=== PATIENT | male | born 1975 | race African-American/Black ===

== ENCOUNTER → 2017-12-20 | Outpatient (CLI) | payer OTHER ==
--- NOTE | 2017-12-20 15:06 | RADIOLOGY REPORT (SQ) ---
EXAM DESCRIPTION: FOOT LEFT 2 VIEWS COMPLETED DATE/TIME: 12/20/2017 1:25 pm REASON FOR STUDY: LATERAL VIEW ONLY MASS ON LEFT FOOT (R22.42) R22.42 LOCALIZED SWELLING, MASS AND LUMP, LEFT LOWER LIMB COMPARISON: None. NUMBER OF VIEWS: One view. TECHNIQUE: Lateral radiographic images acquired of the left foot. LIMITATIONS: None. FINDINGS: MINERALIZATION: Normal. BONES: No acute fracture or dislocation. No worrisome bone lesions. JOINTS: No effusions. SOFT TISSUES: Vague soft tissue mass along the plantar surface of the foot which is low-density. OTHER: No other significant finding. IMPRESSION: Vague soft tissue mass along the plantar surface of the foot which is low-density. COMMENT: Recommend ultrasound or MRI. TECHNICAL DOCUMENTATION: JOB ID: [id number] [employer]- All Rights Reserved Reading location - IP/workstation name: [email or web address]
== END ==
LOC: RAD 13:02
PROVIDERS: ATTEND Podiatrist Foot & Ankle Surgery
DX: R22.42 Localized swelling, mass and lump, left lower limb (principal)

== ENCOUNTER → 2017-12-29 | Outpatient (CLI) | payer OTHER ==
--- NOTE | 2017-12-30 08:10 | RADIOLOGY REPORT (SQ) ---
EXAM DESCRIPTION: MRI LT LOWER EXTREMITY COMBO COMPLETED DATE/TIME: 12/29/2017 9:35 pm REASON FOR STUDY: LOCALIZED SWELLING, MASS AND LUMP, LEFT LOWER LIMB R22.42 LOCALIZED SWELLING, MAS S AND LUMP, LEFT LOWER LIMB COMPARISON: Radiographs from recently. TECHNIQUE: Multiplanar fat and fluid sensitive sequences precontrast including T1, T2 fat saturated or STIR. Post contrast T1 fat saturated sequences after IV gadolinium administration. CONTRAST TYPE AND DOSE: 20 mL Prohance. RENAL FUNCTION: GFR > 60. LIMITATIONS: None. FINDINGS: MASS SIGNAL CHARACTERISTICS: LOCATION: Medial plantar fascia roughly at the tarsometatarsal articulation level. SIGNAL CHARACTERISTICS AND ENHANCEMENT PATTERN: Generally intermediate T1 with splaying of fascia fib ers along the deep aspect of the mass. Minimal hyperintense T2 signal. Avidly enhancing with gadoli nium. Extension into the superficial subcutaneous tissues with bulge of the skin surface overlying t his area. Minimal soft tissue and enhancement deep to the fascia, but no invasion of the adjacent mu scles or deeper tissues. MEASUREMENTS: Up to 2.1 cm transverse dimension. Close to 3 cm along the length of the foot. MARROW SIGNAL IN ADJACENT BONES: Normal. OTHER SIGNIFICANT BONE, JOINT OR SOFT TISSUE FINDINGS: Suspect some superomedial talar dome focal cho ndral loss. No significant joint effusion. Ligaments and tendons about the ankle look grossly maint ained. Remainder of the plantar fascia is normal. IMPRESSION: 1. Medial plantar fascia mass, imaging characteristics are most consistent with a fibrom a. No significant extension into or invasion of the deeper soft tissues. TECHNICAL DOCUMENTATION: JOB ID: [id number] [employer]- All Rights Reserved Reading location - IP/workstation name: [email or web address]
== END ==
LOC: RAD 18:59
PROVIDERS: ATTEND Podiatrist Foot & Ankle Surgery
DX: R22.42 Localized swelling, mass and lump, left lower limb (principal)
CPT/HCPCS: 82565